=== PATIENT | male | born 1960 | race Caucasian/White ===

== ENCOUNTER 2020-08-16 19:22 | Inpatient (IN) | payer MEDICAID ==
[~2020-08-16] VITALS: Ht 182.9 cm; Wt 79.4 kg
--- NOTE | 2020-08-16 19:25 | NUR ---
TO ER BED 10 AMBULATORY C/O L SIDED CP RADIATING TO L ARM AND NECK X30MIN SEAT COVERS TRIMMER. SKIN WARM, NONDIAPHORETIC. PT AAOX4 NO ACUTE DISTRESS NOTED, RESP EVEN AND UNALBORED. PLACE PT ON CARDIAC MONITORING, CONTINUOUS POX. PENDING ER MD BLOOM.
--- NOTE | 2020-08-16 19:29 | NUR ---
ER MD AT BEDSIDE TO EVAL PT WITH ORDERS RECEIVED. WILL CARRY OUT ORDERS.
[2020-08-16] MEDS ORDERED: NITROGLYCERIN 0.4 MG/TAB BOTTLE SL ONE ×2 (20:00→21:30)
[2020-08-16] MEDS ORDERED: ASPIRIN 325 MG TABLET PO ONE (20:00)
[2020-08-16] MEDS ORDERED: NITROGLYCERIN 0.4 MG/TAB BOTTLE ONE (20:22)
[2020-08-16] MEDS ORDERED: ASPIRIN 325 MG TABLET ONE (20:22)
[2020-08-16 20:30] LABS: BASOPHILS % (AUTO) 0.1 % (0.0-2.0); EOSINOPHILS % (AUTO) 2.9 % (0.0-6.0); HEMATOCRIT 42 % (39-51); LYMPHOCYTES # (AUTO) 1.9 /CMM (0.8-4.8); LYMPHOCYTES % (AUTO) 25.9 % (20.0-44.0); MEAN CORPUSCULAR HGB CONC 36 g/dl (31.0-36.0); MEAN CORPUSCULAR VOLUME 94 fL (80-96); MONOCYTES # (AUTO) 0.7 /CMM (0.1-1.30); MONOCYTES % (AUTO) 9.5 % (2.0-12.0); NEUTROPHILS # (AUTO) 4.4 /CMM (1.8-8.9); NEUTROPHILS % (AUTO) 61.6 % (43.0-81.0); PLATELET COUNT (AUTO) 199 /CMM (150-450); RED BLOOD CELL COUNT(AUTO) 4.52 MIL/uL (4.5-6.0); WHITE BLOOD COUNT (AUTO) 7.1 K/uL (4.3-11.0)
--- NOTE | 2020-08-16 20:32 | NUR ---
JOHANNEID SWABBED, SENT TO LAB.
--- NOTE | 2020-08-16 20:40 | NUR ---
ONE MORE SL NITRO ADMINISTERED PER MD ORDER, BP 166/64
[2020-08-16 20:53] LABS: CALCIUM, SERUM 8.6 mg/dL (8.5-10.1); CARBON DIOXIDE 29 mmol/L (21-32); CHLORIDE 103 mmol/L (98-107); CREATININE 1.1 mg/dL (0.6-1.3); GLUCOSE 84 mg/dL (74-106); POTASSIUM 3.8 mmol/L (3.5-5.1); SODIUM SERUM 139 mmol/L (136-145); UREA NITROGEN, BLOOD 24 mg/dL (7-18)
--- NOTE | 2020-08-16 21:02 | NUR ---
Mary mchugh in [facility] - 08/16/20 at 2112 by CHRISTIE [id number]
--- NOTE | 2020-08-16 21:25 | NUR ---
REPORT CALLED TO STOCK CHECKERER MARK. WILL TRANSPORT PT VIA [facility].
[2020-08-16] MEDS ORDERED: Z GUARD REMEDY 2 OZ OINT TP PRN (21:30)
[2020-08-16] MEDS ORDERED: MAGNESIUM HYDROXIDE 30 ML UDC PO PRN (21:30)
[2020-08-16] MEDS ORDERED: MAG HYDROX/AL HYDROX/SIMETH 30 ML UDC PO PRN (21:30)
[2020-08-16] MEDS ORDERED: ACETAMINOPHEN 325 MG TABLET PO PRN (21:30)
[2020-08-16] MEDS ORDERED: ONDANSETRON HCL/PF 4 MG/2 ML VIAL IVP PRN (21:30)
--- NOTE | 2020-08-16 21:50 | NUR ---
PT TRANSFERED PER [facility]
[2020-08-16 22:00] VITALS: BP 166/109
--- NOTE | 2020-08-16 22:00 | NUR ---
HOUSING OFFICER NOTES RECEIVED PT FROM ER VIA MADDY AWAKE A/O X4 VERY TALKATIVE, STILL COMPLAINING OF PAIN IN THE CHEST AREA, WALK TO HIS BED V/S CHECKED AND RECORDED NOTED ELEVATED B/ OF 166/109 HR 68, HOOKED TO TELE MONITOR AND IT READS SINUS RHYTHM 70, HEAD TO TOE ASSESSMENT DONE, ADMISSION ASSESSMENT DONE, PT TOLD ME THAT HE IS FROM [place] AND HE JUST CAME HERE 2 DAYS AGO AND HE STILL LOOKING FOR HIS PLACE HERE IN [place], HE SHOW ME PRESCRIPTION FROM [facility] I PUT IT ON MED RECON AND COPY ON HIS CHART, IVFLUID STARTED ORDER MEDS GIVEN ASN ORDERED SAFETY MEASURE INITIATED BED ON LOWEST POSITION AND LOCKED SIDE RAILS UP X2 CALL LIGHT WITHIN REACH WILL CONT TO MONITOR THE PT
[2020-08-16] MEDS: IV NS 0.9% 1,000 ML IV PRN (22:13)
[2020-08-16] MEDS: OLANZAPINE 5 MG TABLET PO SCH (22:13)
[2020-08-16] MEDS: ENOXAPARIN SODIUM 40 MG/0.4 ML DISP.SYRIN SQ SCH (22:14)
[2020-08-16] MEDS ORDERED: OXYC-133 PO (22:26)
[2020-08-16] MEDS ORDERED: ativan PO (22:26)
[2020-08-16] MEDS: LORAZEPAM 1 MG TABLET PO PRN (22:42)
--- NOTE | 2020-08-16 23:30 | NUR ---
REPORTED TO ANCHORMAN LUKAS MATIAS NP ABOUT THE ELEVATED BP OF 176/103 OF THE PT AND CHEST PAIN HE MADE AN ORDER AND CARRIED IT OUT, WILL CONT TO MONITOR THE PT Addendum: 08/17/20 at 0006 by CHOCO PAYNE RN TELE MONITOR READS SINUS RHYTHM 70'S
[2020-08-16] MEDS: MORPHINE SULFATE INJ 2 MG/ML DISP.SYRIN IV PRN (23:55)
[2020-08-17] VITALS: BP 176/103
[2020-08-17] MEDS: hydrALAZINE HCL IV 20 MG VIAL IV PRN ×4 (00:01→22:17)
--- NOTE | 2020-08-17 01:00 | NUR ---
BP RECHECKED 158/98 HR 67 WILL CONT TO MONITOR THE PT
[2020-08-17] MEDS: TEMAZEPAM 15 MG CAPSULE PO PRN (01:34)
[2020-08-17 04:00] VITALS: BP 155/95
[2020-08-17 06:12] LABS: BASOPHILS % (AUTO) 0.4 % (0.0-2.0); EOSINOPHILS % (AUTO) 4.3 % (0.0-6.0); HEMATOCRIT 40 % (39-51); HEMOGLOBIN 14.2 g/dL (13.5-17.5); LYMPHOCYTES # (AUTO) 1.9 /CMM (0.8-4.8); LYMPHOCYTES % (AUTO) 38.9 % (20.0-44.0); MEAN CORPUSCULAR HGB CONC 35 g/dl (31.0-36.0); MEAN CORPUSCULAR VOLUME 94 fL (80-96); MONOCYTES # (AUTO) 0.6 /CMM (0.1-1.30); MONOCYTES % (AUTO) 11.4 % (2.0-12.0); NEUTROPHILS # (AUTO) 2.2 /CMM (1.8-8.9); PLATELET COUNT (AUTO) 190 /CMM (150-450); RED BLOOD CELL COUNT(AUTO) 4.27 MIL/uL (4.5-6.0)
[2020-08-17 06:38] LABS: CALCIUM, SERUM 8.8 mg/dL (8.5-10.1); CREATININE 0.8 mg/dL (0.6-1.3); MAGNESIUM 2.2 mg/dL (1.8-2.4); POTASSIUM 3.5 mmol/L (3.5-5.1)
[2020-08-17 06:48] LABS: THYROID STIMULATING HORMONE 1.291 uIU/mL (0.358-3.74)
--- NOTE | 2020-08-17 07:20 | NUR ---
PT ON BED ASLEEP NO SIGN AND SYMPTOMS OF RESPIRATORY DISTRESS, ON O2 VIA NC AT 2L SPO2 98%, TELE MONITOR READS SINU RHYTHM 80S NO PAIN COMPLAINT AT THIS MOMENT, NO SIGNIFICANT CHANGES ON CONDITION NOTED ALL NEEDS ATTENDED SAFETY MEASURE MAINTAIN BED ON LOWEST POSITION AND LOCKED SIDE RAILS UP X2 CALL LIGHT WITHIN REACH WILL ENDORSED TO AM SHIFT NURSE
--- NOTE | 2020-08-17 07:30 | NUR ---
RN OPENING NOTES RECEIVED PT ALERT AND ORIENTED X4. NOT IN ANY ACUTE DISTRESS. ON TELE MONITOR AND READS NSR, WITH HR IN 80S. INDEPENDENT WITH BED MOBILITY. IV ON LEFT WRIST #20 INTACT AND FLUSHED WELL. SAFETY PRECAUTION OBSERVED. WILL CONTINUE TO MONITOR FOR ANY CHANGE IN CONDITION.
[2020-08-17 08:00] VITALS: BP 155/80
[2020-08-17] MEDS: ASPIRIN 81 MG TAB.CHEW PO SCH (09:09)
[2020-08-17] MEDS: IV NS 0.9% 1,000 ML IV PRN (09:21)
[2020-08-17 12:00] VITALS: BP 187/119
[2020-08-17] MEDS: MORPHINE SULFATE INJ 2 MG/ML DISP.SYRIN IV PRN (12:27)
--- NOTE | 2020-08-17 14:30 | NUR ---
HYDRALAZINE 10MG GIVEN IV PUSH DUE TO BP RESULT 175/101, WILL CONTINUE TO MONITOR.
[2020-08-17] MEDS: LORAZEPAM 1 MG TABLET PO PRN (14:36)
--- NOTE | 2020-08-17 14:49 | NUR ---
SW notified by Alesha MCCLAIN that pt. stated he is experiencing homelessness. Upon SS consult, the pt. was lying in bed awake. Maintenance crew is at the entrance of the pt.'s room working on repairs. Patient asked SW if she can return later. SW will follow up with completing assessment after the crew is done in order to keep patient confidentiality. SW will be available as needed.
--- NOTE | 2020-08-17 15:45 | NUR ---
DR ROTHMAN MADE AWARE OF LATEST BP OF 175/101, AND ALSO INFORMED OF PREVIOUS BP READINGS WITH SYSTOLIC BP IN 180S AND DIASTOLIC BP IN 100S. MADE AWARE THAT PT IS ON IV FLUIDS, WITH NEW ORDER TO DC IV FLUIDS AND JUST TO KEEP HEPLOCK IN PLACE.
--- NOTE | 2020-08-17 15:50 | NUR ---
BP RECHECKED WITH RESULT OF 158/66. WILL CONTINUE TO MONITOR.
[2020-08-17 16:00] VITALS: BP 176/107
--- NOTE | 2020-08-17 16:45 | NUR ---
BP RECHECKED WITH RESULTS OF 159/72. WILL CONTINUE TO MONITOR.
--- NOTE | 2020-08-17 18:51 | NUR ---
BEE WORKER CLOSING NOTES PT ON BED ASLEEP NO SIGN AND SYMPTOMS OF RESPIRATORY DISTRESS, ON O2 VIA NC AT 2L SPO2 98%, TELE MONITOR READS SINU RHYTHM 80S NO PAIN COMPLAINT AT THIS MOMENT, NO SIGNIFICANT CHANGES ON CONDITION NOTED ALL NEEDS ATTENDED SAFETY MEASURE MAINTAIN BED ON LOWEST POSITION AND LOCKED SIDE RAILS UP X2. WILL ENDORSE TO NEXT SHIFT FOR JEREMY.
[2020-08-17] MEDS: hydrALAZINE HCL 50 MG TABLET PO SCH (19:58)
[2020-08-17 20:00] VITALS: BP 195/129
--- NOTE | 2020-08-17 20:00 | NUR ---
TELE OPENING NOTE RECEIVED PT IN BED. ASLEEP BUT EASILY AROUSABLE. BREATHING EVEN AND UNLABORED WITH NO SOB OR ACUTE DISTRESS NOTED. DENIES ANY PAIN OR DISCOMFORT. LEFT WRIST IV #20 PATENT AND INTACT. SRX2 UP . ALL NEEDS RENDERED. WILL CONTINUE TO MONITOR.
[2020-08-17] MEDS: ENOXAPARIN SODIUM 40 MG/0.4 ML DISP.SYRIN SQ SCH (21:03)
[2020-08-17] MEDS: OLANZAPINE 5 MG TABLET PO SCH (21:04)
[2020-08-17] MEDS ORDERED: hydrALAZINE HCL IV 20 MG VIAL ONE (21:55)
[2020-08-17] MEDS: HYDROCODONE/APAP 5/325MG TABLET PO PRN (22:19)
[2020-08-18] VITALS: BP 166/104
--- NOTE | 2020-08-18 01:00 | NUR ---
RECHECKED BP. 158/95 . WILL CONTINUE TO MONITOR. Addendum: 08/18/20 at 0817 by DAGO CARVER RN blood pressure noted at 166/104, hr 109 at 12am. PRN apresoline 10mg iv given. rechecked 1hr later bp 158/95 .
[2020-08-18 04:00] VITALS: BP 146/95
[2020-08-18 06:38] LABS: BASOPHILS % (AUTO) 0.2 % (0.0-2.0); EOSINOPHILS % (AUTO) 0.4 % (0.0-6.0); HEMATOCRIT 43 % (39-51); HEMOGLOBIN 15.2 g/dL (13.5-17.5); LYMPHOCYTES # (AUTO) 2.2 /CMM (0.8-4.8); LYMPHOCYTES % (AUTO) 19.6 % (20.0-44.0); MEAN CORPUSCULAR HGB CONC 35 g/dl (31.0-36.0); MEAN CORPUSCULAR VOLUME 94 fL (80-96); MONOCYTES # (AUTO) 1.1 /CMM (0.1-1.30); MONOCYTES % (AUTO) 9.6 % (2.0-12.0); NEUTROPHILS # (AUTO) 8.1 /CMM (1.8-8.9); NEUTROPHILS % (AUTO) 70.2 % (43.0-81.0); PLATELET COUNT (AUTO) 230 /CMM (150-450); RED BLOOD CELL COUNT(AUTO) 4.59 MIL/uL (4.5-6.0); WHITE BLOOD COUNT (AUTO) 11.5 K/uL (4.3-11.0)
--- NOTE | 2020-08-18 06:40 | NUR ---
CONTENT DEVELOPMENT SPECIALIST CLOSING NOTE PT IN BED. ASLEEP BUT EASILY AROUSABLE. BREATHING EVEN AND UNLABORED WITH NO ACUTE DISTRESS NOTED ON RA. NO S/S OF PAIN NOTED. LEFT WRIST IV SITE SL PATENT AND INTACT. ALL NEEDS RENDERED .CALL LIGHT WITHIN REACH. BED IN LOWEST POSITION. SRX2 UP . WILL ENDORSE TO AM NURSE FOR CONTINUITY OF CARE.
[2020-08-18 07:03] LABS: CALCIUM, SERUM 8.8 mg/dL (8.5-10.1); CREATININE 1.1 mg/dL (0.6-1.3); PHOSPHORUS 3.6 mg/dL (2.5-4.9); POTASSIUM 3.4 mmol/L (3.5-5.1)
--- NOTE | 2020-08-18 07:30 | NUR ---
RN OPENING NOTES RECEIVED PT ALERT, AND ORIENTED X4. BREATHING EVEN AND UNLABORED WITH NO SOB OR ACUTE DISTRESS NOTED. DENIES ANY PAIN OR DISCOMFORT. ON TELE MONITOR WITH READING OF NSR WITH HR IN 80S. LEFT WRIST IV #20 PATENT AND INTACT. SRX2 UP . PT INFORMED OF CT ANGIO PROCEDURE SCHEDULED FOR TODAY, AND ATTEMPTED TO PUT IV FOR ACCESS, PT REFUSED PROCEDURE DESPITE OF PROVIDING INFORMATION ON RISKS AND BENEFITS OF HAVING THE PROCEDURE. PT STATED, HE WILL NOT DO PROCEDURE. DR PEÑA MADE AWARE OF PT REFUSAL FOR CT ANGIO SCAN, WITH NO NEW ORDERS AT THIS TIME. WILL CONTINUE TO MONITOR.
[2020-08-18 08:00] VITALS: BP 146/94
[2020-08-18] MEDS: ASPIRIN 81 MG TAB.CHEW PO SCH (09:18)
[2020-08-18] MEDS: hydrALAZINE HCL 50 MG TABLET PO SCH ×3 (09:18→17:27)
[2020-08-18] MEDS: ISOSORBIDE DINITRATE (20MG) 20 MG TABLET PO SCH ×2 (09:19→17:32)
[2020-08-18] MEDS ORDERED: POTASSIUM CHLORIDE 20 MEQ TAB.PRT.SR PO SCH (11:30)
[2020-08-18 12:00] VITALS: BP 138/85
[2020-08-18] MEDS: LORAZEPAM 1 MG TABLET PO PRN ×2 (12:31→22:38)
[2020-08-18] MEDS ORDERED: OLAN5TAB3 PO (13:47)
[2020-08-18] MEDS ORDERED: HYDR-4077 PO (13:47)
[2020-08-18] MEDS ORDERED: ISOS20TA8 PO (13:47)
[2020-08-18] MEDS ORDERED: ASPI-1169 PO (13:47)
--- NOTE | 2020-08-18 15:46 | NUR ---
Presentation Manager consult requested as patient is homeless. SW attempted to follow-up with patient today. Patient was asleep, face down, and easily arousable to verbal cues. Patient woke easily and informed this SW that he was tired and was not ready to speak at this time. Patient asked this SW to return at a later time. SW will attempt again at a later time.
[2020-08-18 16:00] VITALS: BP 143/68
--- NOTE | 2020-08-18 19:06 | NUR ---
RN NOTE PT IS AWAKE ALERT AND ORIENTED X4. NO SIGNS OF DISTRESS WHILE ON ROOM AIR. LEFT WRIST IV SITE SL PATENT AND INTACT. PLAN OF CARE DISCUSSED. SAFETY MEASURES IN PLACE, WILL MONITOR PATIENT.
--- NOTE | 2020-08-18 19:09 | NUR ---
RN CLOSING NOTES PT REMAINS ALERT AND ORIENTED X4. BREATHING EVEN AND UNLABORED WITH NO ACUTE DISTRESS NOTED ON RA. NO S/S OF PAIN NOTED. LEFT WRIST IV SITE SL PATENT AND INTACT. ALL NEEDS RENDERED .MELODY LIGHT WITHIN REACH. BED IN LOWEST POSITION. SRX2 UP . PT HAS ORDERS FOR DC TO HOME. CM TO FOLLOW UP ON POSSIBLE DC TO ALF DUE TO PT BEING HOMELESS. WILL ENDORSE TO NEXT SHIFT FOR CONTINUITY OF CARE.
[2020-08-18] MEDS: MORPHINE SULFATE INJ 2 MG/ML DISP.SYRIN IV PRN (19:44)
[2020-08-18 20:00] VITALS: BP 125/75
[2020-08-18] MEDS: TEMAZEPAM 15 MG CAPSULE PO PRN (21:17)
[2020-08-18] MEDS: OLANZAPINE 5 MG TABLET PO SCH (21:17)
[2020-08-18] MEDS: ENOXAPARIN SODIUM 40 MG/0.4 ML DISP.SYRIN SQ SCH (21:18)
[2020-08-18] MEDS: HYDROCODONE/APAP 5/325MG TABLET PO PRN (22:38)
[2020-08-19] MEDS: MORPHINE SULFATE INJ 2 MG/ML DISP.SYRIN IV PRN (00:36)
--- NOTE | 2020-08-19 02:00 | NUR ---
RN NOTE PT SLEEPING COMFORTABLY IN BED WITHOUT SIGNS OF PAIN OR DISCOMFORT.
[2020-08-19 04:00] VITALS: BP 137/93
[2020-08-19 07:01] LABS: CALCIUM, SERUM 8.5 mg/dL (8.5-10.1); POTASSIUM 3.8 mmol/L (3.5-5.1)
--- NOTE | 2020-08-19 07:29 | NUR ---
RN NOTE NO ACUTE CHANGES OBSERVED OVERNIGHT. ENDORSED TO MORNING RN FOR JEREMY.
--- NOTE | 2020-08-19 07:30 | NUR ---
RN OPENING NOTE RECEIVED PATIENT IN BED, ON ROOM AIR, A/O X4, NO S/S/ OF DISTRESS, NO SOB, HAS BATHROOM PRIVILEGES, USES URINAL, SKIN INTACT, L WRIST 20G, FLUSHES WELL, INTACT, DRY, PATENT, CARDIAC DIET, AMBULATORY, BED IN LOWEST LOCKED POSITION, SAFETY MEASURES IN PLACE, CALL LIGHT WITHIN REACH, WILL CONTINUE TO MONITOR.
[2020-08-19 08:00] VITALS: BP 160/99
[2020-08-19] MEDS: hydrALAZINE HCL 50 MG TABLET PO SCH ×3 (08:49→17:24)
[2020-08-19] MEDS: ASPIRIN 81 MG TAB.CHEW PO SCH (08:49)
[2020-08-19] MEDS: ISOSORBIDE DINITRATE (20MG) 20 MG TABLET PO SCH ×2 (08:50→17:25)
--- NOTE | 2020-08-19 10:33 | NUR ---
Patient informed this SW about wanting to be referred to a program called [facility]. SW to follow up this morning. Agency Development Manager provided patient with the following resources for homelessness: Substance Abuse resources provided included: [facility] Substance Abuse Self-Helpline ([facility]) ; [facility] [address] [facility]. [place] [id number] ; [facility] [address] [facility] [id number] ; [facility] [address] [facility] [place]. [place] [phone] ; [facility] [address] [facility] [phone] ; [facility] [address] [facility] [phone] ; [facility] [address] [facility] [phone] ; [facility] Substance Abuse Helpline([facility])-[facility] ; [facility] ; [facility] [place]; [facility] [place]; [facility] [place]; [facility] [place]; [facility] [place]; [facility] [place]; [facility] [place]; Alcoholics Anonymous -[facility]V; En-Pmjq-Bdarxcx ; Marijuana Anonymous -[facility]; Narcotics Anonymous www.na.org. Year-round shelters : [facility] [address] [place] [address] ; [facility] [place] [address] [place] [address]; [facility] [id number] [facility] [address] Hygiene: [facility]: [address] [place] ; [facility] [address] [facility] ; [facility] [address] [place] . Food Resources: [facility] at [facility]- [address] [place]; Meet Each Need wit D[facility] ([facility]) [address] [facility] [place]; [facility] [address] [facility]; [facility] [address] [place]. Mental Health resources provided: [facility] [address] [place] [address] ; [facility] [address], [place] [address] ; Marta Marrufo [facility] [address] [place] [address] ; [facility] [address] [place] [address]
--- NOTE | 2020-08-19 11:18 | NUR ---
Patient is agreeable to discharge to self. Patient will be going to [facility] after discharge [address] [place] [address]. Patient reports he needs to get an Identification Card. Patient agreeable to follow up with [facility] on SaturdayAugust 22 as that is when [facility] [employer] opens for temporary retirement.
[2020-08-19] MEDS: HYDROCODONE/APAP 5/325MG TABLET PO PRN (11:40)
[2020-08-19 12:00] VITALS: BP 160/101
--- NOTE | 2020-08-19 12:06 | NUR ---
RN NOTES RECEIVED REPORT FROM PEACE SALDANA. PT IS AWAKE, A/O X4. VERBALLY RESPONSIVE. IV SITE AT L WRIST #20 INTACT, PATENT AND FLUSHED. PT IN STABLE CONDITION. WILL CONTINUE TO MONITOR
--- NOTE | 2020-08-19 12:08 | NUR ---
RN NOTES REPORT GIVEN TO DEBO SALDANA FOR JEREMY.
[2020-08-19] MEDS ORDERED: INFLUENZA VACCINE 2020-21 0.5 ML DISP.SYRIN IM ONE (16:30)
[2020-08-19 17:25] VITALS: BP 126/80
--- NOTE | 2020-08-19 18:45 | NUR ---
SPORT PSYCHOLOGIST NOTES PATIENT REFUSED INFLUENZA VACCINE. EDUCATED X3 AND STILL REFUSED. INSISTED TO GO LEAVE. DISCHARGED IN STABLE CONDITION, VITAL SIGNS WERE WITHIN NORMAL LIMITS, HAD ALL BELONGINGS. TALKED TO KAYDEN DIA [facility], THEY TOLD US HIS GLASSES WERE NOT FOUND. PATIENT IS AWARE.
== END 2020-08-19 18:25 | disposition home or self-care (01) | DRG 198 ==
LOC: ER 19:34 → TELE1 21:10 → MEDSG1 08-18 10:28
PROVIDERS: ADMIT Nurse Practitioner Acute Care; ATTEND Student in an Organized Health Care Education/Training Program
DX: I25.10 Atherosclerotic heart disease of native coronary artery without angina pectoris (principal); N17.0 Acute kidney failure with tubular necrosis; K74.60 Unspecified cirrhosis of liver; J44.9 Chronic obstructive pulmonary disease, unspecified; B19.20 Unspecified viral hepatitis C without hepatic coma; I10 Essential (primary) hypertension; F17.200 Nicotine dependence, unspecified, uncomplicated; F12.90 Cannabis use, unspecified, uncomplicated; F41.9 Anxiety disorder, unspecified; Z87.442 Personal history of urinary calculi; Z71.6 Tobacco abuse counseling; F31.9 Bipolar disorder, unspecified
CPT/HCPCS: 36415; 71045-TC; 80048-TC; 80061-TC; 83735-TC; 84100-TC; 84443-TC; 84484-TC; 85025-TC; 87081-TC; 93307-TC; G0378; J0360; J1650; J2270; J7030